=== PATIENT | female | born 1960 | race Caucasian/White ===

== ENCOUNTER 2021-05-07 17:44 | Emergency (ER) | payer MEDICARE, OTHER ==
[~2021-05-07] VITALS: Ht 162.6 cm; Wt 71.7 kg
[~2021-05-07 17:44] MED LIST: DULO30 PO; ESTMET; ESTR2 PO; HYDACE5 PO; LORA.5 PO; METO50ER; MORP30 PO; MORP30ER; OLME20; OLME20 PO; OXYC30 PO; OXYC30ER PO; VARE1; VENL75ER
[2021-05-07] MEDS ORDERED: MS Contin15 MG (18:29)
[2021-05-07] MEDS ORDERED: HYDROCODONE-AC1 EAC7 PO (18:30)
[2021-05-07] MEDS ORDERED: BACLOFEN10 M4 PO (18:31)
[2021-05-07] MEDS ORDERED: HYDCHL25 PO (18:31)
[2021-05-07] MEDS ORDERED: LOSARTAN POTASS25 M2 PO (18:32)
[2021-05-07] MEDS ORDERED: EUTHYROX100 MC1 PO (18:32)
[2021-05-07] MEDS ORDERED: PROG100 PO (18:33)
[2021-05-07] MEDS ORDERED: DULOXETINE HCL60 M1 PO (18:34)
[2021-05-07] MEDS ORDERED: TRAZ50 PO (18:35)
== END 2021-05-07 19:48 | disposition home or self-care (01) ==
LOC: ER 17:44
DX: M47.22 Other spondylosis with radiculopathy, cervical region (principal); I10 Essential (primary) hypertension; Z79.899 Other long term (current) drug therapy
CPT/HCPCS: 72125; 93005; 93010; 99284-25

== ENCOUNTER 2024-09-23 14:12 | Observation (INO) | payer OTHER ==
[~2024-09-23] VITALS: Ht 167.6 cm; Wt 68.0 kg
[~2024-09-23 14:12] MED LIST changes: +BACLOFEN10 M4 PO; +DULOXETINE HCL60 M1 PO; +EUTHYROX100 MC1 PO; +HYDCHL25 PO; +HYDROCODONE-AC1 EAC7 PO; +LOSARTAN POTASS25 M2 PO; +MS Contin15 MG PO; +PROG100 PO; +TRAZ50 PO
[2024-09-23] MEDS ORDERED: Ketamine HCL 10 MG/ML 20MLVIAL IM ONE (14:25)
[2024-09-23 15:26] LABS: BASOPHILS ABSOLUTE AUTO 0.05 K/mm3 (0.00-0.23); BASOPHILS PERCENT AUTO 0 % (0-2); EOSINOPHILS ABSOLUTE AUTO 0.11 K/mm3 (0.00-0.68); EOSINOPHILS PERCENT AUTO 1 % (0-6); Hematocrit 39.3 % (33.0-51.0); Hemoglobin 13.4 g/dL (11.5-16.0); IMMATURE GRAN ABSOLUTE AUTO 0.03 K/mm3 (0.00-0.10); IMMATURE GRAN PERCENT AUTO 0 % (0-1); LYMPHOCYTES ABSOLUTE AUTO 1.84 K/mm3 (0.84-5.20); LYMPHOCYTES PERCENT AUTO 15 % (21-46); MONOCYTES ABSOLUTE AUTO 0.65 K/mm3 (0.16-1.47); MONOCYTES PERCENT AUTO 5 % (4-13); Mean Corpuscular HGB 31.2 pg (26.0-34.0); Mean Corpuscular HGB Conc 34.1 g/dL (31.5-36.5); Mean Corpuscular Volume 92 fL (80-100); Mean Platelet Volume 10.5 fL (9.1-12.4); NEUTROPHILS ABSOLUTE AUTO 9.81 K/mm3 (1.96-9.15); NEUTROPHILS PERCENT AUTO 79 % (41-73); Platelet Count 420 K/mm3 (150-400); RDW Coefficient Variation 13.3 % (11.7-14.2); RDW Standard Deviation 45.1 fL (35.1-46.3); Red Blood Cell Count 4.29 M/mm3 (3.80-5.20); White Blood Cell Count 12.49 K/mm3 (4.00-11.30)
[2024-09-23 15:36] LABS: U Amphetamine Screen Not Detected; U Barbituate Screen Not Detected; U Benzodiazapine Screen Not Detected; U Buprenorphine Screen Not Detected; U Cannabinoids Screen Not Detected; U Cocaine Screen Not Detected; U Methadone Screen Not Detected; U Methamphetamine Screen Not Detected; U Opiates Screen DETECTED; U Oxycodone Screen DETECTED; U Phencyclidine Screen Not Detected
[2024-09-23 15:45] LABS: Albumin, Blood 3.9 g/dL (3.4-5.0); Albumin/Globulin Ratio 1.1 (0.8-1.8); Bilirubin, Total 0.3 mg/dL (0.1-1.0); Bun/Creatinine Ratio 23.5 (12.0-20.0); Calcium, Blood 9.7 mg/dL (8.5-10.1); Creatinine, Blood 0.6 mg/dL (0.40-1.00); Globulin, Blood 3.6 g/dL (2.2-4.0); Potassium, Blood 3.8 mmol/L (3.5-5.5); Total Protein, Blood 7.5 g/dL (6.4-8.2)
[2024-09-23] MEDS ORDERED: Ondansetron HCl 2 MG / ML 2ML Vial IV ONE (20:25)
[2024-09-23] MEDS ORDERED: Metoclopramide HCl 5MG / ML 2ML Vial IV ONE (20:55)
[2024-09-23] MEDS ORDERED: Morphine Sulfate 20 MG/1ML 1 ML Oral Syringe PO ONE ×2 (20:55→23:00)
[2024-09-23] MEDS ORDERED: Naloxone HCl 0.4MG / ML 1ML Vial IV PRN (22:45)
[2024-09-23] MEDS ORDERED: FLU VACC TS2024-25(6MOS UP)/PF 45 MCG/0.5 ML SYRINGE IM ONE (22:45)
[2024-09-23] MEDS ORDERED: Acetaminophen 325 MG TABLET PO PRN (22:45)
[2024-09-23] MEDS ORDERED: Ondansetron HCl 2 MG / ML 2ML Vial IV PRN (22:50)
[2024-09-23] MEDS ORDERED: Seroquel Xr50 MG PO (23:03)
[2024-09-23] MEDS ORDERED: TIZA4 PO (23:04)
[2024-09-23] MEDS ORDERED: CELE100 PO (23:07)
--- NOTE | 2024-09-24 02:03 | NUR ---
NEW ADMIT. PATIENT ADMITTED TO ROOM 332 FROM THE ER. PATIENT ARRIVED TO ROOM VIA GURNEY AND TRANSPORT. UPON ARRIVAL PATIENT WAS AWOKEN BY THIS RN AND THIS RN INTRODUCED HERSELF TO PATIENT-PATIENT STATED "I WANT VICODIN, GET ME A VICODIN". THIS RN LET PATIENT KNOW I WOULD LOOK INTO HER CHART AND SEE IF SHE HAD ANYTHING AVALIABLE. PATIENT NO LONGER COMMUNICATING WITH STAFF AT THIS TIME. PATIENT TRANSFERED FROM RNEY TO BED WITH SLIDE SHEET AND 4P ASSIST. EXTRA LINENS REMOVED FROM UNDER PATIENT-AT THIS TIME PATIENT ABLE TO FOLLOW SIMPLE COMMANDS TO TURN. THIS RN TO ASSUME PATIENT CARE.
[2024-09-24 02:16] VITALS: BP 149/94
--- NOTE | 2024-09-24 02:40 | NUR ---
DURING PATIENT ASSESSMENT, PATIENT REFUSING TO COMMUNICATE WITH THIS RN, PATIENT LAYS WITH EYES SHUT, AROUSABLE BUT WILL CLOSE HER EYES SOON THIS RN TALKS OR ASKS A QUESTION-PATIENT IS NONCOMPLIANT IN PARTICIPATING IN HER ASSESSMENT. THIS RN LOOKED AT PATIENTS CHART TO SEE IF SHE HAD ANY ORDERED MEDICATION FOR PAIN, THIS RN ASKED PATIENT IS SHE WOULD LIKE HER ORDERED TYLENOL-SEE ORDER/EMAR-PATIENT DID NOT RESPOND TO RN, RN ASKED AGAIN PATIENT CONTINUES TO IGNORE THIS RN. PATIENT EDUCATED PLANNING MANAGER LIGHT AND ASKED TO CALL IF SHE WOULD LIKE TYLENOL-PATIENT DID NOT RESPOND. BED IS LOCKED IN THE LOWEST POSITION, CALL LIGHT IS IN REACH.
[2024-09-24 02:56] LABS: Base Excess Venous 0.3 mmol/L; PCO2 Venous 34.9 mmHg (38-42); pH Blood Venous 7.45 (7.34-7.37)
[2024-09-24 02:58] LABS: BASOPHILS ABSOLUTE AUTO 0.04 K/mm3 (0.00-0.23); BASOPHILS PERCENT AUTO 0 % (0-2); EOSINOPHILS ABSOLUTE AUTO 0.53 K/mm3 (0.00-0.68); EOSINOPHILS PERCENT AUTO 3 % (0-6); Hematocrit 41.4 % (33.0-51.0); Hemoglobin 14.2 g/dL (11.5-16.0); IMMATURE GRAN ABSOLUTE AUTO 0.07 K/mm3 (0.00-0.10); IMMATURE GRAN PERCENT AUTO 0 % (0-1); LYMPHOCYTES ABSOLUTE AUTO 0.94 K/mm3 (0.84-5.20); LYMPHOCYTES PERCENT AUTO 5 % (21-46); MONOCYTES ABSOLUTE AUTO 0.27 K/mm3 (0.16-1.47); MONOCYTES PERCENT AUTO 2 % (4-13); Mean Corpuscular HGB 31.5 pg (26.0-34.0); Mean Corpuscular HGB Conc 34.3 g/dL (31.5-36.5); Mean Corpuscular Volume 92 fL (80-100); Mean Platelet Volume 10.3 fL (9.1-12.4); NEUTROPHILS ABSOLUTE AUTO 15.64 K/mm3 (1.96-9.15); NEUTROPHILS PERCENT AUTO 90 % (41-73); Platelet Count 376 K/mm3 (150-400); RDW Coefficient Variation 13.3 % (11.7-14.2); RDW Standard Deviation 45.2 fL (35.1-46.3); Red Blood Cell Count 4.51 M/mm3 (3.80-5.20); White Blood Cell Count 17.49 K/mm3 (4.00-11.30)
[2024-09-24 03:21] LABS: Albumin, Blood 3.7 g/dL (3.4-5.0); Bilirubin, Total 0.4 mg/dL (0.1-1.0); Bun/Creatinine Ratio 18.2 (12.0-20.0); Calcium, Blood 9.4 mg/dL (8.5-10.1); Creatinine, Blood 0.61 mg/dL (0.40-1.00); Globulin, Blood 3.8 g/dL (2.2-4.0); Potassium, Blood 3.9 mmol/L (3.5-5.5); Total Protein, Blood 7.5 g/dL (6.4-8.2)
[2024-09-24] MEDS ORDERED: Morphine Sulfate 20 MG/1ML 1 ML Oral Syringe PO ONE (04:30)
--- NOTE | 2024-09-24 05:45 | NUR ---
SHIFT SUMMARY. PATIENT IS A&O TO PERSON, PLACE, -ORIENTATION DIFFICULT TO ASSESS D/T PATIENT IGNORING THIS RN AND LINE WELDER, PATIENT WILL TALK WITH LAB. PATIENT HAS REQUESTED VICODIN SEVERAL TIMES SINCE ADMITTANCE TO THE FLOOR- THIS IS THE ONLY COMMUNICATION PATIENT APPEARS TO BE WILLING TO HAVE WITH THIS RN. PATIENT RESTING OFF AND ON SINCE ADMITTANCE. ARRIVED TO PATIENTS ROOM THIS MORNING AT 0500-PATIENT STATED TO "IF I WOULD HAVE KNOWN YOU WERE COMING IN, THEY AREN'T GIVING ME ANYTHING FOR PAIN, NOTHING, TYLENOL THATS IT". PATIENTS RESPONDED WITH "I THINK YOU SHOULD STAY UNTIL YOU FEEL BETTER AND ARE READY TO GO HOME"-THIS RN ADMINISTERED A ONE TIME DOSE OF ROXANOL-SEE ORDERS TO PATIENT DURING THIS TIME. PATIENT HAS BEEN UNWILLING TO COMMUNICATE WITH THIS RN. PATIENT UP TO BSC THIS SHIFT WITH BREAK NURSE KEON AND [place] REQUIRING 2P ASSIST WITH GB. PATIENTS BED IS LOCKED IN THE LOWEST POSITION WITH CALL LIGHT IN REACH. CARE IS ONGOING.
[2024-09-24 07:54] VITALS: BP 136/76
[2024-09-24] MEDS ORDERED: Morphine Sulfate 15 MG TABCR PO PRN (08:55)
[2024-09-24 09:46] LABS: Source, Urine Clean Catch
[2024-09-24 09:49] LABS: Appearance, Urine Clear (Clear); Bilirubin, Urine Neg (Neg); Blood, Urine 1+ (Neg); Color, Urine Yellow (P-Yellow); Glucose Qualitative, Urine Neg (Neg); Ketones, Urine 1+ (Neg); Leukocyte Esterase, Urine Neg (Neg); Nitrite, Urine Neg (Neg); Protein, Urine 3+ (Neg); Specific Gravity, Urine 1.025 (1.003-1.022); Urobilinogen, Urine NORM (Normal)
[2024-09-24 09:55] LABS: Mucus Heavy (0-Heavy); Squamous Epithelial Cells Many /hpf (Few)
[2024-09-24 09:56] LABS: Bacteria Many /hpf; White Blood Cells, Urine 0-2 /hpf (0-5)
[2024-09-24] MEDS ORDERED: HYDROcodone 10-APAP 325 TAB PO PRN (11:05)
[2024-09-24 11:30] LABS: BASOPHILS ABSOLUTE AUTO 0.04 K/mm3 (0.00-0.23); BASOPHILS PERCENT AUTO 0 % (0-2); EOSINOPHILS ABSOLUTE AUTO 0.01 K/mm3 (0.00-0.68); EOSINOPHILS PERCENT AUTO 0 % (0-6); Hematocrit 40.5 % (33.0-51.0); Hemoglobin 13.8 g/dL (11.5-16.0); IMMATURE GRAN ABSOLUTE AUTO 0.08 K/mm3 (0.00-0.10); IMMATURE GRAN PERCENT AUTO 1 % (0-1); LYMPHOCYTES PERCENT AUTO 11 % (21-46); MONOCYTES ABSOLUTE AUTO 1.25 K/mm3 (0.16-1.47); MONOCYTES PERCENT AUTO 7 % (4-13); Mean Corpuscular HGB 31.1 pg (26.0-34.0); Mean Corpuscular HGB Conc 34.1 g/dL (31.5-36.5); Mean Corpuscular Volume 91 fL (80-100); Mean Platelet Volume 10.2 fL (9.1-12.4); NEUTROPHILS ABSOLUTE AUTO 14.15 K/mm3 (1.96-9.15); NEUTROPHILS PERCENT AUTO 81 % (41-73); Platelet Count 404 K/mm3 (150-400); RDW Coefficient Variation 13.3 % (11.7-14.2); RDW Standard Deviation 44.7 fL (35.1-46.3); Red Blood Cell Count 4.44 M/mm3 (3.80-5.20); White Blood Cell Count 17.43 K/mm3 (4.00-11.30)
--- NOTE | 2024-09-24 17:16 | NUR ---
AMA NOTE PT LEFT AMA AT 1635. PT A&OX4, VSS, AMB IND IN THE ROOM W/ FAMILY, AND C/O PAIN. PT STATED THAT SHE WAS GOING TO LEAVE BECAUSE SHE WANTED TO TAKE HER HOME PAIN MEDICATION. [employer] TR[employer] DRIVERENOCH CLEARY AND MARK NOTIFIED AND ENOCH CLEARY NOTIFIED . PT ESCOURTED OUT VIA W/C BY HER FAMILY. AMA FORM SIGNED AND IN CHART.
== END 2024-09-24 16:44 | disposition left against medical advice (07) ==
LOC: ER 14:12 → MEDS 14:13
PROVIDERS: Emergency Medicine; Internal Medicine; ADMIT Student in an Organized Health Care Education/Training Program
DX: T40.2X1A Poisoning by other opioids, accidental (unintentional), initial encounter (principal); D72.829 Elevated white blood cell count, unspecified; G89.4 Chronic pain syndrome; I10 Essential (primary) hypertension; E03.9 Hypothyroidism, unspecified; F32.9 Major depressive disorder, single episode, unspecified; Z79.899 Other long term (current) drug therapy
CPT/HCPCS: 36415; 70450; 71046; 80053; 81001; 82803; 83735; 84145; 85025; 87086; 93005; 93010; 96372; 96374; 99285-25; A9270; G0378; J2405; P9612